=== PATIENT | female | born 1990 | race American Indian/Alaskan Native ===

== ENCOUNTER 2016-05-05 04:54 | Inpatient (IN) | payer MEDICAID ==
[~2016-05-05 04:54] MED LIST: PITOCin/NS 20 UNIT/1000ML DRIP 20,000 MILLIUNITS/1,000 ML BAG IV ONE
[2016-05-05] MEDS ORDERED: MINERAL OIL PO PRN (06:43)
[2016-05-05] MEDS ORDERED: ePHEDrine SULFATE IV PRN (06:43)
[2016-05-05] MEDS ORDERED: BRETHINE SUB-Q PRN (06:43)
[2016-05-05] MEDS ORDERED: BRETHINE IVP PRN (06:43)
[2016-05-05] MEDS ORDERED: XYLOCAINE 2% INFILTRATI ONE (06:43)
--- NOTE | 2016-05-05 06:43 | History and Physical Report ---
History of Present Illness Date of examination: 05/05/16 Date of admission: 05/05/16 04:54 Chief complaint: Labor History of present illness: Pt is a 26yo BF EDC 06/04/16; EGA 35 5/7 weeks presents [facility] complaining of SROM and contractions, and was C/C/V +1 She has not received any care, but has had a previous delivery at 29 weeks. Past History Past Medical History: no pertinent history Past Surgical History: no surgical history Social history: no significant social history, single - Obstetrical History Expected Date of Delivery: 06/04/16 Actual Gestation: 35 Week(s) 5 Day(s) : 4 Medications and Allergies Allergies Allergy/AdvReac Type Severity Reaction Status Date / Time No Known Allergies Allergy Verified 05/05/16 05:02 Home Medications Medication Instructions Recorded Confirmed Last Taken Type No Known Home Medications [No 05/05/16 05/05/16 Unknown History Reported Home Medications] Review of Systems All systems: negative - Vital Signs Vital signs: Vital Signs Pulse Pulse Ox 107 H 100 05/05/16 04:55 05/05/16 04:55 Temp Pulse Resp BP Pulse Ox 97.8 F 92 H 121/85 99 05/05/16 05:06 05/05/16 06:28 05/05/16 06:19 05/05/16 06:28 - Physical Exam Breasts: Positive: deferred Cardiovascular: Regular rate Lungs: Positive: Clear to auscultation Abdomen: Positive: normal appearance Genitourinary (Female): Positive: normal external genitalia Vagina: Positive: normal moisture Uterus: Positive: enlarged Extremities: Positive: normal - Obstetrical FHR: category 1 Uterine Contraction Monitor Mode: External Cervical Dilatation: 10 Cervical Effacement Percentage: 100 station: +1 Uterine Contraction Pattern: Irregular Uterine Tone Measurement Phase: Contraction Uterine Contraction Intensity: Moderate Results All other labs normal. Assessment and Plan - Patient Problems (1) 35 weeks gestation of Onset Date: 05/05/16 Current Visit: Yes Status: Acute Plan to address problem: A: IUP @ 35 5/7 weeks in labor No care P: Admit to L&D for expectant vaginal delivery Obtain labs (2) labor in third trimester Onset Date: 05/05/16 Current Visit: Yes Status: Acute Qualifiers: labor delivery status: with delivery in third trimester Fetus number: single or unspecified fetus Qualified Code(s): O60.14X0 - labor third trimester with delivery third trimester, not applicable or unspecified
[2016-05-05] MEDS ORDERED: PITOCin/NS 20 UNIT/1000ML DRIP 20 UNITS/1,000 ML BAG IV SCH ×2 (07:00→09:00)
[2016-05-05] MEDS ORDERED: PITOCin/NS 30 UNIT/500ML 30 UNITS/500 ML BAG IV SCH (07:00)
[2016-05-05] MEDS ORDERED: LACTATED RINGERS 1,000 ML IV SCH (07:00)
--- NOTE | 2016-05-05 08:19 | Procedure Note ---
OB Delivery Note - Delivery Date of Delivery: 05/05/16 Surgeon: ANAHI GAITAN Estimated blood loss: other (400cc) - Vaginal Delivery presentation: vertex Delivery position: OP Intrapartum events: no care, labor-<37 weeks, PROM->1hr before delivery Delivery induction: none Delivery augmentation: rupture of membranes Delivery monitor: external FHT, external uterine Route of delivery: Delivery placenta: spontaneous Delivery cord: 3 umbilical vessels Episiotomy: none Delivery laceration: 2nd degree (perineal) Delivery repair: vicryl Anesthesia: local Delivery comments: NICU and RT in attendance. - A at 1 minute: 9 at 5 minutes: 9 Gender: Female (2630gms)
[2016-05-05] MEDS: PERCOCET 5/325 PO PRN ×2 (08:41→14:55)
[2016-05-05 08:42] LABS: Hematocrit 29.6 % (30.3-42.9); Hemoglobin 9.5 gm/dl (10.1-14.3); Mean Corpuscular HGB Conc 32 % (30-34); Mean Corpuscular Hemoglobin 27 pg (28-32); Mean Corpuscular Volume 83 fl (79-97); Platelet Count 154 K/mm3 (140-440); Red Blood Count 3.58 M/mm3 (3.65-5.03); Red Cell Distribution Width 14.2 % (13.2-15.2); White Blood Count 13.5 K/mm3 (4.5-11.0)
[2016-05-05] MEDS ORDERED: SODIUM CHLORIDE FLUSH SYRINGE 10 ML IV PRN (09:00)
[2016-05-05 09:08] LABS: HIV-1 Antigen p24 Non React (Non React); HIVR-1/2 Ab Non React (Non React)
[2016-05-05] MEDS ORDERED: TYLENOL PO PRN ×2 (09:30)
[2016-05-05] MEDS ORDERED: PHENERGAN PO PRN (09:30)
[2016-05-05] MEDS ORDERED: NORCO 5/325 PO PRN (09:30)
[2016-05-05] MEDS ORDERED: ZOFRAN IV PRN (09:30)
[2016-05-05] MEDS ORDERED: LANSINOH TP PRN (09:30)
[2016-05-05] MEDS ORDERED: TUCKS PAD TP PRN (09:30)
[2016-05-05] MEDS ORDERED: PHENERGAN PR PRN (09:30)
[2016-05-05] MEDS ORDERED: BENADRYL PO PRN (09:30)
[2016-05-05] MEDS ORDERED: DERMOPLAST TP PRN (09:30)
[2016-05-05] MEDS ORDERED: DULCOLAX PR PRN (10:00)
[2016-05-05] MEDS: PRENATAL VITAMIN PO SCH (14:55)
[2016-05-05] MEDS: FEOSOL PO SCH ×2 (14:55→22:11)
[2016-05-05] MEDS: COLACE PO SCH ×2 (14:55→22:10)
[2016-05-05 15:20] LABS: Urine Drugs of Abuse Note Disclamer
[2016-05-05 21:43] LABS: Hematocrit 26.9 % (30.3-42.9); Hemoglobin 8.8 gm/dl (10.1-14.3)
[2016-05-05] MEDS ORDERED: MILK OF MAGNESIA PO PRN (22:00)
[2016-05-05] MEDS: MOTRIN PO SCH (22:11)
[2016-05-06] MEDS: MOTRIN PO SCH ×3 (00:04→12:59)
[2016-05-06] MEDS ORDERED: BOOSTRIX IM ONE (06:00)
[2016-05-06 09:02] VITALS: BP 101/56
[2016-05-06] MEDS: FEOSOL PO SCH (10:10)
[2016-05-06] MEDS: COLACE PO SCH (10:10)
[2016-05-06] MEDS: PRENATAL VITAMIN PO SCH (10:10)
[2016-05-06] MEDS ORDERED: M-M-R II VACCINE SUB-Q ONE (11:00)
--- NOTE | 2016-05-06 11:42 | Progress Note ---
Assessment and Plan - Patient Problems (1) 35 weeks gestation of Onset Date: 05/05/16 Current Visit: Yes Status: Resolved (2) labor in third trimester Onset Date: 05/05/16 Current Visit: Yes Status: Resolved Qualifiers: labor delivery status: with delivery in third trimester Fetus number: single or unspecified fetus Qualified Code(s): O60.14X0 - labor third trimester with delivery third trimester, not applicable or unspecified (3) (normal spontaneous vaginal delivery) Onset Date: 05/06/16 Current Visit: Yes Status: Resolved Plan to address problem: A: S/P - PPD #1 Doing well P: May go home today Subjective - Subjective Date of service: 05/06/16 Principal diagnosis: s/p - PPD #1 Interval history: Pt is feeling well without complaints. Bleeding improved. Patient reports: appetite normal, voiding normally, pain well controlled, flatus , ambulating normally : doing well, bottle feeding Objective - Vital Signs Latest vital signs: Vital Signs Temp Pulse Pulse Resp BP 05/06/16 08:15 98.3 F 68 20 101/56 05/06/16 00:45 98.2 F 62 20 95/52 05/05/16 15:58 98.0 F 76 20 102/70 05/05/16 12:06 97.8 F 72 18 105/52 Intake and Output 05/05/16 05/06/16 05/06/16 22:59 06:59 14:59 Intake Total 480 240 Output Total 550 Balance -70 240 Intake: Oral 480 240 Output: Urine 550 Void 550 Other: Total, Intake Amount 240 120 Total, Output Amount 550 # Voids Void 1 - Exam Breasts: Present: deferred Cardiovascular: Present: Regular rate Lungs: Present: Clear to auscultation Abdomen: Present: normal appearance, soft Uterus: Present: normal, firm, fundal height below umbilicus Extremities: Present: normal - Labs Labs: Abnormal lab results 05/05/16 Range/Units 21:16 Hgb 8.8 L (10.1-14.3) gm/dl Hct 26.9 L (30.3-42.9) % Laboratory Tests 05/05/16 05/05/16 05/05/16 08:10 08:10 08:10 WBC 13.5 H RBC 3.58 L Hgb 9.5 L Hct 29.6 L MCV 83 MCH 27 L MCHC 32 RDW 14.2 Plt Count 154 Sickle Cell Screen Negative Urine Opiates Screen Urine Methadone Screen Ur Barbiturates Screen Ur Phencyclidine Scrn Ur Amphetamines Screen U Benzodiazepines Scrn Urine Cocaine Screen U Marijuana (THC) Screen Drugs of Abuse Note RPR Nonreactive Hep Bs Antigen Hepatitis C Antibody HIV 1&2 Antibody Rapid HIV P24 Antigen Rubella IgG Antibody Blood Type B POSITIVE Antibody Screen Negative 05/05/16 05/05/16 05/05/16 08:10 08:10 08:10 WBC RBC Hgb Hct MCV MCH MCHC RDW Plt Count Sickle Cell Screen Urine Opiates Screen Urine Methadone Screen Ur Barbiturates Screen Ur Phencyclidine Scrn Ur Amphetamines Screen U Benzodiazepines Scrn Urine Cocaine Screen U Marijuana (THC) Screen Drugs of Abuse Note RPR Hep Bs Antigen Non-reactive Hepatitis C Antibody Non-reactive HIV 1&2 Antibody Rapid Non react HIV P24 Antigen Non react Rubella IgG Antibody Immune Blood Type Antibody Screen 05/05/16 05/05/16 15:00 21:16 WBC RBC Hgb 8.8 L Hct 26.9 L MCV MCH MCHC RDW Plt Count Sickle Cell Screen Urine Opiates Screen Presumptive negative Urine Methadone Screen Presumptive negative Ur Barbiturates Screen Presumptive negative Ur Phencyclidine Scrn Presumptive negative Ur Amphetamines Screen Presumptive negative U Benzodiazepines Scrn Presumptive negative Urine Cocaine Screen Presumptive negative U Marijuana (THC) Screen Presumptive positive Drugs of Abuse Note Disclamer RPR Hep Bs Antigen Hepatitis C Antibody HIV 1&2 Antibody Rapid HIV P24 Antigen Rubella IgG Antibody Blood Type Antibody Screen
--- NOTE | 2016-05-06 11:46 | Discharge Summary ---
Providers - Providers Date of Admission: 05/05/16 04:54 Date of discharge: 05/06/16 Attending physician: ANAHI PALACIO MD Primary care physician: ANAHI PALACIO MD Hospitalization Reason for admission: active labor, labor, rupture of membranes Delivery: Episiotomy: none Other procedures: none complications: none Discharge diagnosis: delivery baby: female Hospital course: Unremarkable. Condition at discharge: Good Disposition: DISCHARGED TO HOME OR SELFCARE - Discharge Diagnoses (1) 35 weeks gestation of Status: Resolved (2) labor in third trimester Status: Resolved Qualifiers: labor delivery status: with delivery in third trimester Fetus number: single or unspecified fetus Qualified Code(s): O60.14X0 - labor third trimester with delivery third trimester, not applicable or unspecified (3) (normal spontaneous vaginal delivery) Status: Resolved Plan - Discharge Medications Prescriptions: Ferrous Sulfate [Feosol 325 MG tab] 325 mg PO BID #60 tablet Ibuprofen [Motrin 600 MG tab] 600 mg PO Q6H #30 tablet Vit-Fe Fumar-FA [ Vitamin] 1 each PO QDAY #30 tablet - Provider Discharge Summary Activity: routine, no sex for 6 weeks, no heavy lifting 4 weeks, no strenuous exercise Diet: routine Instructions: routine Additional instructions: [] Smoking cessation referral if applicable(refer to patient education folder for contact #) [] Refer to [facility]'s [facility] Booklet Call your doctor immediately for: * Fever > 100.5 * Heavy vaginal bleeding ( >1 pad per hour) * Severe persistent headache * Shortness of breath * Reddened, hot, painful area to leg or breast * Drainage or odor from incision. * Keep incision clean and dry at all times and follow doctor's instructions regarding bathing/showering - Follow up plan Follow up: ANAHI KWOK MD [Primary Care Provider] - 6 Weeks
== END 2016-05-06 14:55 | disposition home or self-care (01) | DRG 775 ==
LOC: LD 04:54 → OB 09:54
PROVIDERS: ADMIT Obstetrics & Gynecology; ATTEND Obstetrics & Gynecology
PROC: 10E0XZZ Delivery of Products of Conception, External Approach (ICD-10-PCS; principal; 2016-05-05)
PROC: 0KQM0ZZ Repair Perineum Muscle, Open Approach (ICD-10-PCS; 2016-05-05)
DX: O60.14X0 Preterm labor third trimester with preterm delivery third trimester, not applicable or unspecified (principal); Z3A.35 35 weeks gestation of pregnancy; Z37.0 Single live birth; O42.013 Preterm premature rupture of membranes, onset of labor within 24 hours of rupture, third trimester; O70.1 Second degree perineal laceration during delivery
CPT/HCPCS: 36415; 80307; 85014; 85018; 85027; 85660; 86592; 86706; 86762; 86803; 86850; 86900; 86901; 87806; 88307; J2590; J7120